=== PATIENT | male | born 1965 | race African-American/Black ===

== ENCOUNTER 2021-05-02 05:07 | Emergency (ER) | payer BC ==
[~2021-05-02] VITALS: Ht 185.4 cm; Wt 68.2 kg
[2021-05-02 06:01] VITALS: BP 134/86
--- NOTE | 2021-05-02 06:02 | PHYS DOC ---
General Adult EDM: Chief Complaint: FLU SYMPTOM HPI: HPI: Patient is a 56-year-old male presenting via POV for Covid symptoms. States onset was 3 days ago without any known inciting event, trauma, ingestion or exposure. Nothing known makes better or worse. Denies being in any pain. Timing of symptoms has been constant since onset. States his and children are all sick with similar upper respiratory symptoms. Reports he was going to go to work today but is loss of sense of smell and taste concerned him that he might be sick prompting him to come here for a Covid test. He is unvaccinated against COVID-19. States he smokes tobacco and marijuana for which he has not been able to taste recently, no alcohol, illicit drug use or other known immunocompromising conditions. He is only being treated for hypertension at this time by his primary care Review of Systems: Review of Systems: Fourteen body systems of review of systems have been reviewed. See HPI for pertinent positives and negative responses, other dutta all other systems are negative, non-pertinent or non-contributory Heart Score: C/O Chest Pain: No Risk Factors: Risk Factors: DM, Current or recent (<one month) smoker, HTN, HLP, family history of CAD, obesity. Risk Scores: Score 0 - 3: 2.5% MACE over next 6 weeks - Discharge Home Score 4 - 6: 20.3% MACE over next 6 weeks - Admit for Clinical Observation Score 7 - 10: 72.7% MACE over next 6 weeks - Early Invasive Strategies Physical Exam: PE: General: Appears well, non toxic, and comfortable Skin: Warm, dry. Normal for ethnicity. HEENT: Atraumatic. PERRLA. Rhinorrhea and congestion. Nasal turbinates boggy b/l. Moist mucous membranes. Uvula midline. Maintaining secretions. No phonation changes. Neck: Trachea midline. Normal ROM. No stridor. Respiratory: Normal WOB. CTAB w/o w/r/r. No tachypnea. Cardiovascular: Regular rate and rhythm. Normal peripheral perfusion. Abdomen: Soft. Non tender. No distension. Back: Normal ROM. Musculoskeletal: No swelling or deformity. Neuro: Alert and oriented x 4. MAEE. Lymph: No cervical LAD. Psych: Normal affect and mood. EKG: EKG: [] Radiology/Procedures: Radiology/Procedures: [] Course & Med Decision Making: Course & Med Decision Making ABCs unremarkable HPI and comprehensive physical exam nonconcerning for any emergent or surgical issues No indication for further diagnostic ER workup, intervention, or hospitalization at this time Patient presentation concerning for COVID-19 infection in the midst of a pandemic in an unvaccinated individual. Joint decision made to obtain PCR testing with results pending Appropriate self quarantine and supportive care practices discussed at length with individual prior to ER departure with close PCP follow-up advised when safe to do so Di Disclaimer: Di Disclaimer: This electronic medical record was generated, in whole or in part, using a voice recognition dictation system. Departure Departure Impression: Primary Impression: Person under investigation for COVID-19 Disposition: HOME / SELF CARE / HOMELESS Condition: STABLE Referrals: NO PCP (PCP) Additional Instructions: You were seen for loss of sense of smell, taste, body aches, and possible infection with COVID-19. Your physical exam was reassuring. We tested you for COVID-19 but this test does not come back for 1 to 2 days. In the meantime you need to quarantine yourself at home away from all other individuals, especially those who are elderly or have any other chronic health issues or an immunocompromised status. You should return to the ED if you develop worsening cough, shortness of breath, chest pain, or any other new or concerning symptoms. Alternate Tylenol and ibuprofen as needed for body aches and pain. If your test does come back positive you need to quarantine yourself for 10 days until symptom-free. You should make sure to drink plenty of fluids and get plenty of rest. GLADIS CALHOUN DO May 02, 2021 06:01
--- NOTE | 2021-05-03 13:59 | NUR ---
IP: Attempted to contact pt concerning covid results. No answer, left a voicemail to return the call. Addendum: 05/03/21 at 1437 by ALTAGRACIA TRUJILLO RN Pt returned my call. Informed him of positive covid and need to quarantine for 10 days. Pt verbalized understanding.
== END 2021-05-02 06:37 | disposition home or self-care (01) ==
LOC: ER 05:07
DX: U07.1 COVID-19 (principal)
CPT/HCPCS: 99283; U0003; U0005